=== PATIENT | female | born 1975 | race Caucasian/White ===

== ENCOUNTER → 2018-02-28 | Outpatient (CLI) | payer BC ==
--- NOTE | 2018-03-01 21:05 | Diagnostic Imaging Report ---
EXAMINATION: Digital mammogram bilateral screening with 3D tomosynthesis. INDICATION: Screening. This is the patient's baseline study. At this time, there are no current complaints. The current study was also evaluated with a Computer Aided Detection (CAD) system. FINDINGS: The fibroglandular tissue in both breasts is heterogeneously dense. This does limit the sensitivity of this exam. There are a few benign-appearing nodular densities in both breasts. This includes an 8 mm nodular density in the upper-outer quadrant of the right breast, approximately 12 cm from the nipple. Tomographic image also shows a similar-sized nodular density in the lateral aspect of the left breast on the craniocaudad view. This is not as well visualized on the MLO view, but I suspect it is in the upper-outer quadrant of the left breast. I do suspect that these nodular densities are benign. Even so, I would recommend that ultrasound of each breast be performed to better characterize these findings. There is no primary or secondary sign of malignancy noted. IMPRESSION: Ultrasound would be recommended for further evaluation of both breasts. ACR BI-RADS Category 0: Incomplete. (Needs additional imaging evaluation). Result letter will be mailed to the patient. Note: At least 10% of breast cancer is not imaged by mammography. Dictated on workstation # [id number]
== END ==
LOC: RAD 14:00
PROVIDERS: ATTEND Family Medicine
DX: Z12.31 Encounter for screening mammogram for malignant neoplasm of breast (principal)
CPT/HCPCS: 77067

== ENCOUNTER → 2018-05-03 | Outpatient (CLI) | payer BC ==
--- NOTE | 2018-05-03 19:46 | Diagnostic Imaging Report ---
INDICATION: Bilateral breast densities. This study is performed for further evaluation. COMPARISON: Correlation is made with the screening mammogram from 02/28/2018. FINDINGS: Sonographic interrogation of the upper-outer right breast and the outer left breast was performed. There are numerous cysts throughout both breasts. The right breast at the 11 o'clock location contains numerous cysts, likely accounting for the mammographic densities. A cyst at the 11 o'clock location, 10 cm from the nipple measures approximately 9 mm x 5 mm. A cyst at 11 o'clock, 8 cm from the nipple measures 12 mm x 6 mm. A cyst at the 11 o'clock location, 6 cm from the nipple measures 13 mm x 8 mm. No solid masses in the right breast are identified. On the left, there are multiple cysts. The largest cluster is located at the 4 o'clock location, 4 cm from the nipple measuring 9 mm x 7 mm. No solid masses in the left breast are identified. IMPRESSION: Bilateral breast cysts, likely accounting for the mammographic densities. The patient may return to routine annual screening mammography. ACR BI-RADS Category 2: Benign findings. Dictated by: Dictated on workstation # [id number]
== END ==
LOC: RAD 13:42
PROVIDERS: ATTEND Nurse Practitioner Family
DX: N60.01 Solitary cyst of right breast (principal); N60.02 Solitary cyst of left breast; N63.20 Unspecified lump in the left breast, unspecified quadrant
CPT/HCPCS: 76642

== ENCOUNTER → 2019-05-08 | Outpatient (CLI) | payer BC ==
--- NOTE | 2019-05-08 13:21 | Diagnostic Imaging Report ---
INDICATION: Routine screening. COMPARISON: Comparison is made with prior mammogram from 02/28/2018. TECHNIQUE: 2-D and 3-D bilateral screening mammography was performed. The current study was also evaluated with a Computer Aided Detection (CAD) system. 3-D tomosynthesis was also performed and reviewed. FINDINGS: Both breasts remain heterogeneously dense, limiting the sensitivity of mammography. Multiple circumscribed densities are again noted in both breasts. These were shown to represent cysts with ultrasound. No definite spiculated mass or malignant-appearing microcalcifications are seen. The axillae are unremarkable. IMPRESSION: No mammographic features suspicious for malignancy are identified. ACR BI-RADS Category 2: Benign findings. Result letter will be mailed to the patient. Note: At least 10% of breast cancer is not imaged by mammography. Dictated by: Dictated on workstation # [id number]
== END ==
LOC: RAD 08:41
PROVIDERS: ATTEND Nurse Practitioner Family
DX: Z12.31 Encounter for screening mammogram for malignant neoplasm of breast (principal)
CPT/HCPCS: 77067

== ENCOUNTER 2019-11-29 14:36 | Outpatient (RCR) | payer BC | END 2020-02-27 | disposition home or self-care (01) | PROVIDERS: ATTEND Physical Therapist | DX: M79.672 Pain in left foot (principal); R26.9 Unspecified abnormalities of gait and mobility; Z98.890 Other specified postprocedural states ==

== ENCOUNTER → 2020-10-28 | Outpatient (CLI) | payer BC ==
--- NOTE | 2020-10-28 15:14 | Diagnostic Imaging Report ---
PROCEDURE: CT abdomen and pelvis without contrast. TECHNIQUE: Multiple contiguous axial images were obtained through the abdomen and pelvis without the use of intravenous contrast. Auto Exposure Controls were utilized during the CT exam to meet ALARA standards for radiation dose reduction. INDICATION: Severe recurrent bladder infections with hematuria. COMPARISON: Exam compared with abdominopelvic CT performed on 05/05/2015. FINDINGS: The unopacified urinary bladder appeared unremarkable. No appreciable wall thickening or perivesical edema. There are no radiopaque urinary tract calculi. A right upper pole nodule that corresponds to a simple cyst present on the study of 2015, the remote exam did include contrast media, that lesion measured an unchanged 2.5 cm. The adrenals are negative. The unopacified liver and bile ducts are unremarkable. Spleen, adrenals, and pancreas are negative. The aorta is nonaneurysmal. There is no small or large bowel obstruction. There is no ascites. Uterus and adnexa are unremarkable. IMPRESSION: 1. Unremarkable appearance of the urinary bladder at nonenhanced CT. 2. A right renal nodule, believed cyst, unchanged from remote contrast-enhanced comparison. 3. No opaque stone, obstruction, or acute-appearing abnormalities. Dictated by: Dictated on workstation # [id number]
== END ==
LOC: RAD 14:15
PROVIDERS: ATTEND Urology
DX: N28.89 Other specified disorders of kidney and ureter (principal)
CPT/HCPCS: 74176

== ENCOUNTER → 2021-12-21 | Outpatient (CLI) | payer BC ==
[2021-12-21 10:21] VITALS: BP 134/82
--- NOTE | 2021-12-21 11:47 | Cardiology Stress Test Report ---
Stress Test Report Date of Procedure/Referring: Date of Procedure: Dec 21, 2021 PCP No,Local Physician Admitting Physician Admitting Physician: Attending Physician: Sarah Beth Gómez MD Indications: Palpitation Baseline Heart Rate: 63 Baseline Blood Pressure: Blood Pressure Systolic: 134 Blood Pressure Diastolic: 82 Baseline EKG: Baseline EKG: NSR Summary/Conclusion: Summary: In summary, the patient started exercising with a baseline heart rate, blood pressure and EKG mentioned above Patient was able to exercise for a total of 10 minutes on Alfred protocol, METs 11.7 Maximum heart rate 161 Maximum blood pressure 193/73 Stress EKG, Minimal nondiagnostic changes Recovery EKG , Return to baseline Conclusion: 1. Good exercise tolerance for a total of 10 minutes on Alfred protocol, 11.7 METs, achieving 93 percent of maximum expected heart rate 2. Minimal nondiagnostic EKG changes with exercise returned to baseline during recovery 3. No arrhythmia was noted SARAH BETH GÓMEZ MD Dec 21, 2021 11:47
== END ==
LOC: CARD 09:00
PROVIDERS: ATTEND Internal Medicine Cardiovascular Disease
DX: I35.1 Nonrheumatic aortic (valve) insufficiency (principal); I10 Essential (primary) hypertension; I25.10 Atherosclerotic heart disease of native coronary artery without angina pectoris
CPT/HCPCS: 93017; 93306

== ENCOUNTER → 2022-12-27 | Outpatient (CLI) | payer BC ==
--- NOTE | 2022-12-27 16:37 | Diagnostic Imaging Report ---
EXAMINATION: CT chest without contrast. TECHNIQUE: Multiple contiguous axial images were obtained through the chest without the use of intravenous contrast. All CT scans use one or more of the following dose optimizing techniques: automated exposure control, MA and/or KvP adjustment based on patient size and exam type or iterative reconstruction. HISTORY: Pulmonary nodule evaluation COMPARISON: 10/28/2020 FINDINGS: Thyroid: The thyroid is normal. Mediastinum: Heart size is normal without significant pericardial effusion. The aorta is normal in caliber. No suspicious lymphadenopathy. Lungs and airways: The lungs are clear without consolidation, pleural effusion, or pneumothorax. There is a left lower lobe pulmonary nodule measuring 0.4 x 0.4 cm (series 3 image 87). This is stable in size from 10/28/2020. No new suspicious pulmonary lesion. The airways are normal. Upper abdomen: Redemonstrated right renal cyst. The subphrenic structures are otherwise unremarkable. Musculoskeletal: Degenerative changes of the spine without suspicious osseous lesion or compression fracture. IMPRESSION: 1. Stable 0.4 cm left lower lobe pulmonary nodule. No other suspicious pulmonary lesion. 2. No acute abnormality in the chest. Dictated by: Dictated on workstation # [id number]
== END ==
LOC: RAD 10:56
PROVIDERS: ATTEND Internal Medicine Cardiovascular Disease
DX: R91.1 Solitary pulmonary nodule (principal)
CPT/HCPCS: 71250